=== PATIENT | male | born 1945 | race Caucasian/White ===

== ENCOUNTER 2018-07-15 06:21 | Inpatient (IN) ==
[2018-07-15] MEDS ORDERED: PANTOPRAZOLE 40 MG VIAL IV STA (07:37)
[2018-07-15] MEDS ORDERED: SODIUM CHLORIDE 0.9% 1,000 ML IV STA (07:37)
[2018-07-15 07:42] LABS: Basophils % 0.3 % (0.0-0.8); Eosinophils % 0.4 % (0.00-10.9); Hemoglobin 14.3 GM/DL (14.0-18.0); Immature Granulocytes % 0.3 %; Immature Granulocytes Absolute 0.03 #; Lymphocytes # 1.8 10*3/uL (1.4-4.0); Lymphocytes % 19.6 % (21.2-54.2); Mean Corpuscular HGB Conc 34.9 GM/DL (32-36); Mean Corpuscular Hemoglobin 33 PG (27-34); Mean Corpuscular Volume 93.2 FL (87-102); Mean Platelet Volume 11.4 FL (9.6-12.0); Monocytes # 0.4 10*3/uL (0.11-0.8); Neutrophils # 6.7 10*3/uL (1.4-7.4); Neutrophils % 75.4 % (38.7-73.9); Platelet Count 229 T/CUMM (130-400); Red Cell Distribution Width 12.8 % (9.3-17.3); White Blood Count 8.9 T/CUMM (4-12)
[2018-07-15 07:48] LABS: PT Patient Result 10.1 SECS; Partial Thromboplastin Time 25.2 SECS (0-40)
[2018-07-15 07:58] LABS: Albumin 3.6 G/DL (3.4-5.0); Bilirubin,Total 1.1 MG/DL (0.2-1.0); Calcium 9.4 MG/DL (8.5-10.1); Osmolality,Calculated 290.5 MOS/KG (273-304); Potassium 3.7 MMOL/L (3.5-5.1); Total Protein 6.9 G/DL (6.4-8.3)
[2018-07-15] MEDS ORDERED: DEXTROSE 50% 25 GM/50 ML VIAL IV PRN (12:11)
[2018-07-15] MEDS ORDERED: GLUCAGON 1 MG VIAL IM PRN (12:11)
[2018-07-15] MEDS ORDERED: SODIUM CHLORIDE 0.9% 1,000 ML IV SCH (13:00)
[2018-07-15] MEDS ORDERED: POLYETHYLENE GLYCOL POWDER 255 GM BOTTLE PO ONE (14:00)
[2018-07-15] MEDS ORDERED: BISACODYL 5 MG TABLET PO ONE (14:00)
[2018-07-15] MEDS ORDERED: metFORMIN 500 MG TABLET PO SCH (17:00)
[2018-07-15] MEDS: INSULIN LISPRO 100 UNIT/ML SUBCUT SCH ×2 (17:04→21:25)
[2018-07-15 18:47] LABS: Hemoglobin 11.5 GM/DL (14.0-18.0)
[2018-07-16 05:17] LABS: Basophils % 0.5 % (0.0-0.8); Eosinophils # 0.1 10*3/uL (0.0-0.87); Eosinophils % 1.5 % (0.00-10.9); Hematocrit 31.9 VOL% (42.0-52.0); Hemoglobin 11.5 GM/DL (14.0-18.0); Immature Granulocytes % 0.2 %; Immature Granulocytes Absolute 0.01 #; Lymphocytes # 2.5 10*3/uL (1.4-4.0); Lymphocytes % 37.5 % (21.2-54.2); Mean Corpuscular HGB Conc 36.1 GM/DL (32-36); Mean Corpuscular Hemoglobin 33 PG (27-34); Mean Corpuscular Volume 91.7 FL (87-102); Mean Platelet Volume 11.6 FL (9.6-12.0); Monocytes # 0.4 10*3/uL (0.11-0.8); Monocytes % 6.4 % (1.7-12.7); Neutrophils # 3.5 10*3/uL (1.4-7.4); Neutrophils % 53.9 % (38.7-73.9); Red Cell Distribution Width 12.9 % (9.3-17.3); White Blood Count 6.6 T/CUMM (4-12)
[2018-07-16 05:33] LABS: Platelet Count 183 T/CUMM (130-400); Red Blood Count 3.48 MC/CUMM (3.8-5.5)
[2018-07-16 05:51] LABS: Osmolality,Calculated 288.8 MOS/KG (273-304); Potassium 2.8 MMOL/L (3.5-5.1)
[2018-07-16] MEDS: INSULIN LISPRO 100 UNIT/ML SUBCUT SCH ×4 (07:41→21:48)
[2018-07-16] MEDS: POTASSIUM CHLORIDE RIDER 10 MEQ in PREMIX 1 EACH IV SCH ×3 (08:43→10:44)
[2018-07-16] MEDS ORDERED: SODIUM CHLOR 0.9% KCL 40 MEQ 40 MEQ/1,000 ML BAG IV SCH (09:30)
[2018-07-16] MEDS: GLIMEPIRIDE 2 MG TABLET PO SCH (09:36)
[2018-07-16] MEDS ORDERED: MAGNESIUM SULF RIDER 2 GM in PREMIX 1 EACH IV ONE (10:00)
[2018-07-16 15:46] LABS: Basophils % 0.3 % (0.0-0.8); Eosinophils # 0.2 10*3/uL (0.0-0.87); Eosinophils % 2.3 % (0.00-10.9); Immature Granulocytes % 0.5 %; Immature Granulocytes Absolute 0.03 #; Lymphocytes # 2.6 10*3/uL (1.4-4.0); Lymphocytes % 38.8 % (21.2-54.2); Mean Corpuscular HGB Conc 35.5 GM/DL (32-36); Mean Corpuscular Hemoglobin 33 PG (27-34); Mean Corpuscular Volume 92.8 FL (87-102); Mean Platelet Volume 10.7 FL (9.6-12.0); Monocytes # 0.4 10*3/uL (0.11-0.8); Monocytes % 5.9 % (1.7-12.7); Neutrophils # 3.4 10*3/uL (1.4-7.4); Neutrophils % 52.2 % (38.7-73.9); Platelet Count 171 T/CUMM (130-400); Red Blood Count 3.34 MC/CUMM (3.8-5.5); Red Cell Distribution Width 12.8 % (9.3-17.3); White Blood Count 6.6 T/CUMM (4-12)
[2018-07-16 16:07] LABS: Calcium 7.8 MG/DL (8.5-10.1); Potassium 3.2 MMOL/L (3.5-5.1)
[2018-07-17 05:35] LABS: Basophils % 0.4 % (0.0-0.8); Eosinophils # 0.2 10*3/uL (0.0-0.87); Hematocrit 30.4 VOL% (42.0-52.0); Hemoglobin 10.4 GM/DL (14.0-18.0); Immature Granulocytes % 0.4 %; Immature Granulocytes Absolute 0.02 #; Lymphocytes # 2.1 10*3/uL (1.4-4.0); Lymphocytes % 36.9 % (21.2-54.2); Mean Corpuscular HGB Conc 34.2 GM/DL (32-36); Mean Corpuscular Hemoglobin 33 PG (27-34); Mean Platelet Volume 11.3 FL (9.6-12.0); Monocytes # 0.4 10*3/uL (0.11-0.8); Monocytes % 7.3 % (1.7-12.7); Neutrophils # 2.9 10*3/uL (1.4-7.4); Platelet Count 163 T/CUMM (130-400); White Blood Count 5.6 T/CUMM (4-12)
[2018-07-17 05:52] LABS: Calcium 8.1 MG/DL (8.5-10.1); Osmolality,Calculated 292.6 MOS/KG (273-304); Potassium 4.1 MMOL/L (3.5-5.1)
[2018-07-17 07:49] VITALS: BP 135/81
[2018-07-17] MEDS: INSULIN LISPRO 100 UNIT/ML SUBCUT SCH (08:42)
[2018-07-17] MEDS: GLIMEPIRIDE 2 MG TABLET PO SCH (08:47)
[2018-07-17] MEDS ORDERED: PROPOFOL 200 MG/20 ML VIAL IV ONE (09:00)
[2018-07-17] MEDS ORDERED: PHENYLEPHRINE 1 MG/10 ML SYRINGE IV ONE (09:00)
[2018-07-17] MEDS ORDERED: LIDOCAINE 1% 5 ML VIAL ONE (09:00)
== END 2018-07-17 10:44 | disposition home or self-care (01) | DRG 378 ==
LOC: N.ED 06:21 → N.EDINP 08:19 → N.2E 10:26
PROVIDERS: ADMIT Family Medicine; ATTEND Family Medicine